=== PATIENT | male | born 1940 | race Caucasian/White ===

== ENCOUNTER → 2017-06-28 | Outpatient (CLI) | payer OTHER ==
[2017-06-28 10:00] LABS: MEAN CORPUSCULAR HEMOGLOBIN 32.3 pg (27.0-33.0); MEAN CORPUSCULAR HGB CONC 34.1 g/dl (32.0-36.5); MEAN CORPUSCULAR VOLUME 94.6 fl (80.0-96.0); RED CELL DISTRIBUTION WIDTH 13.1 % (11.5-14.5); WHITE BLOOD COUNT 5.6 10^3/uL (4.0-10.0)
[2017-06-28 10:17] LABS: EOSINOPHILS 5 % (0-5)
[2017-06-28 10:42] LABS: ALBUMIN 3.9 GM/DL (3.2-5.2); ALKALINE PHOSPHATASE 87 U/L (45-117); ALT/SGPT 29 U/L (12-78); ANION GAP 6 MEQ/L (8-16); AST/SGOT 18 U/L (15-37); BILIRUBIN,TOTAL 0.4 MG/DL (0.2-1.0); BLOOD UREA NITROGEN 16 MG/DL (7-18); CALCIUM LEVEL 9.1 MG/DL (8.8-10.2); CARBON DIOXIDE LEVEL 29 MEQ/L (21-32); CHLORIDE LEVEL 103 MEQ/L (98-107); FREE T4 0.67 NG/DL (0.76-1.46); GLOMERULAR FILTRATION RATE > 60.0 (>42); GLUCOSE, FASTING 93 MG/DL (83-110); POTASSIUM SERUM 4.8 MEQ/L (3.5-5.1); SODIUM LEVEL 138 MEQ/L (136-145); TOTAL PROTEIN 6.9 GM/DL (6.4-8.2)
[2017-07-03 00:06] LABS: INSULIN FREE 5.5 uU/mL (.)
== END ==
LOC: M WUC 08:32
PROVIDERS: ATTEND Physician Assistant
DX: R53.83 Other fatigue (principal); R42 Dizziness and giddiness

== ENCOUNTER 2019-03-21 15:13 | Emergency (ER) | payer BC, MEDICARE, OTHER ==
[~2019-03-21] VITALS: Ht 175.3 cm; Wt 98.6 kg
[2019-03-21] MEDS ORDERED: TEST200I14 IM (15:32)
[2019-03-21] MEDS ORDERED: SYNT100T PO (15:32)
[2019-03-21] MEDS ORDERED: LISI-538 PO (15:32)
[2019-03-21] MEDS ORDERED: DEXI60CA2 PO (15:32)
[2019-03-21] MEDS ORDERED: FAMO40TA3 PO (15:32)
[2019-03-21] MEDS ORDERED: LISI10TA4 PO (15:33)
[2019-03-21 15:53] LABS: BASO # 0.1 10^3/uL (0.0-0.2); BASO % 0.8 % (0.0-1.0); EOS # 0.3 10^3/uL (0.0-0.50); EOS % 4.4 % (0.0-3.0); HEMATOCRIT 48.5 % (42.0-52.0); HEMOGLOBIN 16.5 g/dl (13.5-17.5); LYMPH # 1.8 10^3/uL (1.5-4.5); LYMPH % 24.5 % (24.0-44.0); MEAN CORPUSCULAR HEMOGLOBIN 32.4 pg (27.0-33.0); MEAN CORPUSCULAR VOLUME 95.3 fl (80.0-96.0); MONO # 0.8 10^3/uL (0.0-0.8); MONO % 10.2 % (0.0-5.0); NEUTROPHILS # 4.5 10^3/uL (1.8-7.7); NEUTROPHILS % 59.4 % (36.0-66.0); PLATELET COUNT, AUTOMATED 235 10^3/uL (150-450); RED BLOOD COUNT 5.09 10^6/uL (4.30-6.10); WHITE BLOOD COUNT 7.5 10^3/uL (4.0-10.0)
--- NOTE | 2019-03-21 16:02 | REP ---
Portable chest x-ray: Single view. History: Chest pain. No comparison study. Findings: EKG monitoring electrodes overlie the chest. Lungs are well inflated and are clear. The pleural angles are sharp. Heart size is normal. Pulmonary vasculature is not felt to be increased. There is an old ununited fracture of the distal clavicle on the left. No acute bony abnormality. Impression: No active disease. Electronically Signed by Haile Gruber MD 03/21/2019 03:54 P
[2019-03-21 16:34] LABS: BLOOD UREA NITROGEN 10 MG/DL (7-18); CALCIUM LEVEL 8.6 MG/DL (8.8-10.2); CARBON DIOXIDE LEVEL 28 MEQ/L (21-32); CHLORIDE LEVEL 106 MEQ/L (98-107); CK-MB VALUE MASS 2.6 NG/ML (<3.6); CPK CREATINE PHOSPHOKINASE 117 U/L (39-308); CREATININE FOR GFR 0.96 MG/DL (0.70-1.30); GLOMERULAR FILTRATION RATE > 60.0 (>42); GLUCOSE, FASTING 90 MG/DL (70-100); MB/CK RELATIVE INDEX 2.22 (< OR =4); SODIUM LEVEL 139 MEQ/L (136-145); TROPONIN I < 0.02 NG/ML (< 0.10)
[2019-03-21 17:37] LABS: FREE T4 0.87 NG/DL (0.76-1.46); MAGNESIUM LEVEL 2.3 MG/DL (1.8-2.4); THYROID STIMULATING HORMONE 0.999 uIU/ML (0.358-3.740)
[2019-03-21 17:51] VITALS: BP 155/86
--- NOTE | 2019-03-21 21:51 | ECGEPIP ---
[facility] - ED Test Date: 2019-03-21 Pat Name: NIRMAL STARKS Department: Room: - Gender: Male [employer]: FRANK : [id number] Requested By: Shai Pagan Order Number: [id number] Reading MD: Nirmal Benton Measurements Intervals [place] Rate: 65 P: 51 RI: 205 QRS: QRSD: 145 T: QT: 389 QTc: 407 Interpretive Statements SINUS RHYTHM WITH OCCASIONAL SUPRAVENTRICULAR PREMATURE COMPLEXES BORDERLINE LEFT AXIS DEVIATION RIGHT BUNDLE BRANCH BLOCK LVH by voltage Comparison tracing not on file Electronically Signed on 03-21-2019 21:51:35 EDT by Nirmal Benton
== END 2019-03-21 18:08 | disposition home or self-care (01) ==
LOC: M ED 15:13
DX: R00.2 Palpitations (principal); I45.10 Unspecified right bundle-branch block; I10 Essential (primary) hypertension; E03.9 Hypothyroidism, unspecified; Z79.899 Other long term (current) drug therapy

== ENCOUNTER → 2019-06-04 | Outpatient (REF) | payer MEDICARE ==
[~2019-06-04] MED LIST: DEXI60CA2 PO; FAMO40TA3 PO; LISI-538 PO; LISI10TA4 PO; SYNT100T PO; TEST200I14 IM
== END ==
LOC: M LAB REF 15:00
PROVIDERS: ATTEND Nurse Practitioner Family
DX: R19.7 Diarrhea, unspecified (principal)

== ENCOUNTER → 2021-03-09 | Outpatient (REF) | payer MEDICARE ==
[~2021-03-09] MED LIST changes: -LISI-538 PO; +LISI10TA22 PO; -LISI10TA4 PO; +LISI20TA33 PO
[2021-03-09 16:29] LABS: APPEARANCE, URINE HAZY (CLEAR); BACTERIA, URINE AUTO NEGATIVE (NEGATIVE); BILIRUBIN, URINE AUTO NEGATIVE (NEGATIVE); BLOOD, URINE BLOOD NEGATIVE (NEGATIVE); COLOR, URINE AMBER (YELLOW); GLUCOSE, URINE (UA) AUTO NEGATIVE (NEGATIVE); KETONE, URINE AUTO TRACE mg/dL (NEGATIVE); LEUKOCYTE ESTERASE, URINE AUTO NEGATIVE (NEGATIVE); MUCUS, URINE SMALL (NEGATIVE); NITRITE, URINE AUTO NEGATIVE (NEGATIVE); PROTEIN, URINE AUTO NEGATIVE (NEGATIVE); RBC, URINE AUTO 0 /HPF (0-3); SQUAMOUS EPITHELIAL CELL UR AU 0 /HPF (0-6); WBC, URINE AUTO 1 /HPF (0-3)
[2021-03-09 16:33] LABS: BASO # 0.1 10^3/uL (0.0-0.2); BASO % 0.7 % (0.0-1.0); EOS # 0.2 10^3/uL (0.0-0.5); EOS % 2.4 % (0.0-3.0); HEMATOCRIT 47.3 % (42.0-52.0); HEMOGLOBIN 16.2 g/dl (13.5-17.5); LYMPH # 1.7 10^3/uL (1.5-5.0); MEAN CORPUSCULAR HEMOGLOBIN 31.6 pg (27.0-33.0); MEAN CORPUSCULAR HGB CONC 34.2 g/dl (32.0-36.5); MEAN CORPUSCULAR VOLUME 92.4 fl (80.0-96.0); MONO # 0.8 10^3/uL (0.0-0.8); MONO % 9.7 % (2.0-8.0); NEUTROPHILS # 5.5 10^3/uL (1.5-8.5); NEUTROPHILS % 66.6 % (36.0-66.0); PLATELET COUNT, AUTOMATED 273 10^3/uL (150-450); RED BLOOD COUNT 5.12 10^6/uL (4.30-6.10); WHITE BLOOD COUNT 8.3 10^3/uL (4.0-10.0)
[2021-03-09 16:39] LABS: ALT/SGPT 35 U/L (12-78); BILIRUBIN,TOTAL 0.5 MG/DL (0.2-1.0); BLOOD UREA NITROGEN 12 MG/DL (7-18); CALCIUM LEVEL 8.7 MG/DL (8.8-10.2); CARBON DIOXIDE LEVEL 25 MEQ/L (21-32); CHLORIDE LEVEL 98 MEQ/L (98-107); CREATININE FOR GFR 0.89 MG/DL (0.70-1.30); FREE T3 2.4 PG/ML (2.2-4.0); GLOMERULAR FILTRATION RATE > 60.0 (>42); GLUCOSE, FASTING 99 MG/DL (70-100); IRON (FE) 75 UG/DL (65-175); POTASSIUM SERUM 4.6 MEQ/L (3.5-5.1); SODIUM LEVEL 130 MEQ/L (136-145); THYROID STIMULATING HORMONE 0.544 uIU/ML (0.358-3.740)
[2021-03-09 17:10] LABS: HEMOGLOBIN A1c 5.2 %
[2021-03-09 17:25] LABS: TOTAL 25(OH) VITAMIN D 32.2 NG/ML (30.0-100.0)
[2021-03-09 17:26] LABS: VITAMIN B12 LEVEL 934 PG/ML
[2021-03-09 17:27] LABS: ERYTHROCYTE SEDIMENTATION RATE 2 mm/hr (0-20)
[2021-03-09 17:31] LABS: FOLATE > 24.0 NG/ML
[2021-03-11 21:07] LABS: Lyme Disease IgG/IgM Antibodie <0.91 ISR (0.00-0.90); Lyme Disease IgM Ab Quantitati <0.80 index (0.00-0.79); SEX HORMONE BINDING GLOBULIN 46.2 nmol/L (19.3-76.4); TESTOSTERONE FREE (DIRECT) 13.6 pg/mL (6.6-18.1)
== END ==
LOC: M SFHCCAPE 08:07
PROVIDERS: ATTEND Physician Assistant
DX: R53.83 Other fatigue (principal); E03.9 Hypothyroidism, unspecified; Z12.5 Encounter for screening for malignant neoplasm of prostate; Z79.899 Other long term (current) drug therapy
CPT/HCPCS: 80053; 81001; 82306; 82533; 82607; 82746; 83036; 83540; 84270; 84402; 84403; 84439; 84443; 84481; 85025; 85652; 86140; 86617; 87086; G0103